=== PATIENT | female | born 1980 | race Caucasian/White ===

== ENCOUNTER 2018-12-15 23:45 | Emergency (ER) | payer MEDICAID ==
[~2018-12-15] VITALS: Ht 162.6 cm; Wt 93.0 kg
[2018-12-16 04:12] VITALS: BP 113/76
== END 2018-12-16 04:37 | disposition home or self-care (01) ==
LOC: ER 23:45
DX: S13.9XXA Sprain of joints and ligaments of unspecified parts of neck, initial encounter (principal); S43.402A Unspecified sprain of left shoulder joint, initial encounter; M62.838 Other muscle spasm; Z90.49 Acquired absence of other specified parts of digestive tract; V43.52XA Car driver injured in collision with other type car in traffic accident, initial encounter; Y93.I9 Activity, other involving external motion; Y92.488 Other paved roadways as the place of occurrence of the external cause; Y99.8 Other external cause status
CPT/HCPCS: 72040